=== PATIENT | female | born 1945 | race American Indian/Alaskan Native ===

== ENCOUNTER 2019-07-29 13:06 | Emergency (ER) | payer OTHER ==
--- NOTE | 2019-07-29 13:43 | Emergency Department Report ---
- General Stated complaint: TIA/HEADACHE X 3 DAYS Time Seen by Provider: 07/29/19 13:32 Source: patient, family, EMS, RN notes reviewed, old records reviewed Mode of arrival: Stretcher Limitations: No Limitations - History of Present Illness Initial comments: 73yo female comes to ER with co pain in her shoulders and knee- she states she has arthritis. Then her family members add that the pt had a stroke in Jun 2019. She was treated at [facility] and then went to rehab for 20 days. She is now living at home with and daughter. Her mobility is limited due to her chronic pain of her knee. PMH HTN HLPD DM TIA RX NORVASC STATIN pt at 1910 states she is on plavix "she forgot" PSH NONE ALLERGY ASA- hives Family adds that she had been 75% back to herself until over the last 3 days she has had intermittent slurred speech. No other neuro complaints or deficits noted per pt or family. 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/24 Complaint: generalized weakness -: Gradual, days(s) Severity: moderate Quality: aching Consistency: constant Improves with: none Worsens with: movement Associated Symptoms: denies other symptoms, other - Related Data Allergies Allergy/AdvReac Type Severity Reaction Status Date / Time aspirin Allergy Hives Verified 07/29/19 17:11 ED Review of Systems ROS: Stated complaint: TIA/HEADACHE X 3 DAYS Other details as noted in HPI Comment: All other systems reviewed and negative ED Past Medical Hx - Past Medical History Previous Medical History?: Yes Hx Hypertension: Yes Hx CVA: Yes Hx Heart Attack/AMI: No Hx Congestive Heart Failure: No Hx Diabetes: No Hx Deep Vein Thrombosis: No Hx Pulmonary Embolism: No Hx GERD: No Hx Liver Disease: No Hx Renal Disease: No Hx of Cancer: No Hx Sickle Cell Disease: No Hx Arthritis: Yes Hx Headaches / Migraines: No Hx Seizures: No Hx Kidney Stones: No Hx Psychiatric Treatment: No Hx Asthma: No Hx COPD: No Hx Tuberculosis: No Hx Dementia: Yes Hx HIV: No - Surgical History Past Surgical History?: No - Family History Family history: no significant - Social History Smoking Status: Never Smoker Substance Use Type: None ED Physical Exam - General General appearance: alert - Head Head exam: Present: atraumatic, normocephalic - Eye Eye exam: Present: normal appearance - ENT ENT exam: Present: mucous membranes dry - Neck Neck exam: Present: normal inspection - Respiratory Respiratory exam: Present: normal lung sounds bilaterally. Absent: respiratory distress - Cardiovascular Cardiovascular Exam: Present: regular rate, normal rhythm. Absent: systolic murmur, diastolic murmur, rubs, gallop - GI/Abdominal GI/Abdominal exam: Present: soft, normal bowel sounds - Extremities Exam Extremities exam: Present: normal inspection - Back Exam Back exam: Present: normal inspection - Neurological Exam Neurological exam: Present: alert - Psychiatric Psychiatric exam: Present: normal affect, flat affect - Skin Skin exam: Present: warm, dry, intact, normal color. Absent: rash - Assessment Assessment Interval: Baseline (1600 pt clear) - Level of Consciousness 1a. Level of Consciousness: alert/keenly responsive - LOC Questions 1b. LOC Questions: answers both correctly - LOC Command 1c. LOC Commands: performs tasks correctly - Best Gaze 2. Best Gaze: normal - Visual 3. Visual: no visual loss - Facial Palsy 4. Facial Palsy: normal symmetrical movement - Motor Arm 5a. Motor Arm Left: no drift 5b. Motor Arm Right: no drift - Motor Leg 6a. Motor Leg Left: no drift 6b. Motor Leg Right: no drift - Limb Ataxia 7. Limb Ataxia: absent - Sensory 8. Sensory: normal - Best Language 9. Best Language: mild/moderate aphasia - Dysarthria 10. Dysarthria: normal - Extinction and Inattention 11. Extinction/Inattention: no abnormality - Scoring Total Score: 1 Stroke Severity: Minor Stroke ED Course Vital Signs 07/29/19 07/29/19 15:02 20:40 Temperature 98.3 F 97.7 F Pulse Rate 80 80 Respiratory 17 14 Rate Blood Pressure 157/86 151/79 [Left] O2 Sat by Pulse 94 91 Oximetry - Reevaluation(s) Reevaluation #1: 07/29/19 15:[facility]: [id number] [place] paged 07/29/19 18:32 [place] called a second time. Reevaluation #3: 07/29/19 18:59 Case discussed with [place] Reevaluation #4: 07/29/19 19:10 Pt updated on plan of care. Waiting for [place] to return call. 1999 PT BEING TRANSFERRED TO [facility] PER [facility] THEY WILL ARRANGE TRANSPORT DR KINGSLEY AWARE ED Medical Decision Making - Lab Data Result diagrams: 07/29/19 14:07 07/29/19 14:07 - EKG Data -: EKG Interpreted by Me EKG shows normal: sinus rhythm Rate: normal - EKG Data When compared to previous EKG there are: no significant change Interpretation: no acute changes - Radiology Data Radiology results: report reviewed, image reviewed nap - Medical Decision Making Lab Results 07/29/19 07/29/19 07/29/19 Range/Units 14:07 14:07 14:07 RBC 5.70 H (3.65-5.03) M/mm3 Hgb 16.6 H (10.1-14.3) gm/dl Hct 51.4 H (30.3-42.9) % MCV 90 (79-97) fl MCH 29 (28-32) pg MCHC 32 (30-34) % RDW 14.6 (13.2-15.2) % Lymph % (Auto) Automated Equipment Engineer Technician [place] % (Auto) Automated Equipment Engineer Technician Eos % (Auto) Automated Equipment Engineer Technician Baso % (Auto) Automated Equipment Engineer Technician Lymph # Automated Equipment Engineer Technician [place] # Automated Equipment Engineer Technician Eos # Automated Equipment Engineer Technician Baso # Automated Equipment Engineer Technician Add Manual Diff Complete Total Counted 100 Seg Neutrophils % Automated Equipment Engineer Technician Seg Neuts % (Manual) 59.0 (40.0-70.0) % Band Neutrophils % 0 % Lymphocytes % (Manual) 28.0 (13.4-35.0) % Reactive Lymphs % (Man) 0 % Monocytes % (Manual) 8.0 H (0.0-7.3) % Eosinophils % (Manual) 4.0 (0.0-4.3) % Basophils % (Manual) 1.0 (0.0-1.8) % Metamyelocytes % 0 % Myelocytes % 0 % Promyelocytes % 0 % Blast Cells % 0 % Nucleated RBC % Not Reportable Seg Neutrophils # Automated Equipment Engineer Technician Seg Neutrophils # Man 0.0 L (1.8-7.7) K/mm3 Band Neutrophils # 0.0 K/mm3 Lymphocytes # (Manual) 0.0 L (1.2-5.4) K/mm3 Abs React Lymphs (Man) 0.0 K/mm3 Monocytes # (Manual) 0.0 (0.0-0.8) K/mm3 Eosinophils # (Manual) 0.0 (0.0-0.4) K/mm3 Basophils # (Manual) 0.0 (0.0-0.1) K/mm3 Metamyelocytes # 0.0 K/mm3 Myelocytes # 0.0 K/mm3 Promyelocytes # 0.0 K/mm3 Blast Cells # 0.0 K/mm3 WBC Morphology Not Reportable Hypersegmented Neuts Not Reportable Hyposegmented Neuts Not Reportable Hypogranular Neuts Not Reportable Smudge Cells Not Reportable Toxic Granulation Not Reportable Toxic Vacuolation Not Reportable Dohle Bodies Not Reportable Pelger-Huet Anomaly Not Reportable Marvel Rods Not Reportable Platelet Estimate Not Reportable Clumped Platelets 1+ Plt Clumps, EDTA Not Reportable Large Platelets Not Reportable Giant Platelets Not Reportable Platelet Satelliting Not Reportable Plt Morphology Comment Not Reportable RBC Morphology Not Reportable Dimorphic RBCs Not Reportable Polychromasia Not Reportable Hypochromasia 1+ Poikilocytosis Not Reportable Anisocytosis Not Reportable Microcytosis Not Reportable Macrocytosis Not Reportable Spherocytes Not Reportable Pappenheimer Bodies Not Reportable Sickle Cells Not Reportable Target Cells Not Reportable Tear Drop Cells Not Reportable Ovalocytes Not Reportable Helmet Cells Not Reportable Barba-Brenas Bodies Not Reportable Trafford Rings Not Reportable Humza Cells Not Reportable Bite Cells Not Reportable Crenated Cell Not Reportable Elliptocytes Not Reportable Acanthocytes (Spur) Not Reportable Rouleaux Not Reportable Hemoglobin C Crystals Not Reportable Schistocytes Not Reportable Malaria parasites Not Reportable Vishal Bodies Not Reportable Hem Pathologist Commnt No PT 12.8 (12.2-14.9) Sec. INR 0.95 (0.87-1.13) APTT 25.5 (24.2-36.6) Sec. Sodium 142 (137-145) mmol/L Potassium 4.4 (3.6-5.0) mmol/L Chloride 104.7 (98-107) mmol/L Carbon Dioxide 22 (22-30) mmol/L Anion Gap 20 mmol/L BUN 23 H (7-17) mg/dL Creatinine 0.8 (0.7-1.2) mg/dL Estimated GFR > 60 ml/min BUN/Creatinine Ratio 29 % Glucose 100 (65-100) mg/dL Calcium 10.2 (8.4-10.2) mg/dL Total Bilirubin 0.40 (0.1-1.2) mg/dL AST 19 (5-40) units/L ALT 15 (7-56) units/L Alkaline Phosphatase 106 (35-129) units/L Troponin T (0.00-0.029) ng/mL Total Protein 7.3 (6.3-8.2) g/dL Albumin 4.2 (3.9-5) g/dL Albumin/Globulin Ratio 1.4 % 07/29/19 Range/Units 15:56 RBC (3.65-5.03) M/mm3 Hgb (10.1-14.3) gm/dl Hct (30.3-42.9) % MCV (79-97) fl MCH (28-32) pg MCHC (30-34) % RDW (13.2-15.2) % Lymph % (Auto) [place] % (Auto) Eos % (Auto) Baso % (Auto) Lymph # [place] # Eos # Baso # Add Manual Diff Total Counted Seg Neutrophils % Seg Neuts % (Manual) (40.0-70.0) % Band Neutrophils % % Lymphocytes % (Manual) (13.4-35.0) % Reactive Lymphs % (Man) % Monocytes % (Manual) (0.0-7.3) % Eosinophils % (Manual) (0.0-4.3) % Basophils % (Manual) (0.0-1.8) % Metamyelocytes % % Myelocytes % % Promyelocytes % % Blast Cells % % Nucleated RBC % Seg Neutrophils # Seg Neutrophils # Man (1.8-7.7) K/mm3 Band Neutrophils # K/mm3 Lymphocytes # (Manual) (1.2-5.4) K/mm3 Abs React Lymphs (Man) K/mm3 Monocytes # (Manual) (0.0-0.8) K/mm3 Eosinophils # (Manual) (0.0-0.4) K/mm3 Basophils # (Manual) (0.0-0.1) K/mm3 Metamyelocytes # K/mm3 Myelocytes # K/mm3 Promyelocytes # K/mm3 Blast Cells # K/mm3 WBC Morphology Hypersegmented Neuts Hyposegmented Neuts Hypogranular Neuts Smudge Cells Toxic Granulation Toxic Vacuolation Dohle Bodies Pelger-Huet Anomaly Marvel Rods Platelet Estimate Clumped Platelets Plt Clumps, EDTA Large Platelets Giant Platelets Platelet Satelliting Plt Morphology Comment RBC Morphology Dimorphic RBCs Polychromasia Hypochromasia Poikilocytosis Anisocytosis Microcytosis Macrocytosis Spherocytes Pappenheimer Bodies Sickle Cells Target Cells Tear Drop Cells Ovalocytes Helmet Cells Barba-Brenas Bodies Trafford Rings Underwood Cells Bite Cells Crenated Cell Elliptocytes Acanthocytes (Spur) Rouleaux Hemoglobin C Crystals Schistocytes Malaria parasites Vishal Bodies Hem Pathologist Commnt PT (12.2-14.9) Sec. INR (0.87-1.13) APTT (24.2-36.6) Sec. Sodium (137-145) mmol/L Potassium (3.6-5.0) mmol/L Chloride (98-107) mmol/L Carbon Dioxide (22-30) mmol/L Anion Gap mmol/L BUN (7-17) mg/dL Creatinine (0.7-1.2) mg/dL Estimated GFR ml/min BUN/Creatinine Ratio % Glucose (65-100) mg/dL Calcium (8.4-10.2) mg/dL Total Bilirubin (0.1-1.2) mg/dL AST (5-40) units/L ALT (7-56) units/L Alkaline Phosphatase (35-129) units/L Troponin T < 0.010 (0.00-0.029) ng/mL Total Protein (6.3-8.2) g/dL Albumin (3.9-5) g/dL Albumin/Globulin Ratio % Vital Signs 07/29/19 15:02 Temperature 98.3 F Pulse Rate 80 Respiratory 17 Rate Blood Pressure 157/86 [Left] O2 Sat by Pulse 94 Oximetry EKG noted labs noted CT noted 1730 updated family [place] paged 1822 Ua noted rocephin IV still waiting for [facility] return page. 1999 [facility] [address] TRANSF[facility] DR WYNN AWARE. NAKUL LORA AWARE. - Differential Diagnosis ro tia/cva Critical care attestation.: If time is entered above; I have spent that time in minutes in the direct care of this critically ill patient, excluding procedure time. ED Disposition Clinical Impression: Slurred speech, UTI (urinary tract infection), Arthritis Disposition: DC/TX-70 ANOTHER TYPE HLTHCARE Is pt being admited?: No Does the pt Need Aspirin: No Condition: Stable Referrals: [facility] [Provider Group] - 3-5 Days Time of Disposition: 15:14
--- NOTE | 2019-07-29 14:14 | XRay Report ---
CHEST 1 VIEW INDICATION: weak. COMPARISON: None. FINDINGS: Support devices: None. Heart: Within normal limits. Pulmonary vasculature: Normal. Lungs/Pleura: No acute air space or interstitial disease. No pleural effusion. Mild eventration of th e left hemidiaphragm. The splenic flexure of the colon is mildly distended and underlies the diaphrag m. Additional findings: None. IMPRESSION: 1. No CHF or pneumonia. Signer Name: Jules Sahu MD Signed: 07/29/2019 2:10 PM Workstation Name: [id number]
[2019-07-29 14:46] LABS: Hematocrit 51.4 % (30.3-42.9); Hemoglobin 16.6 gm/dl (10.1-14.3); Mean Corpuscular HGB Conc 32 % (30-34); Mean Corpuscular Volume 90 fl (79-97); Red Cell Distribution Width 14.6 % (13.2-15.2)
[2019-07-29 14:49] LABS: INR 0.95 (0.87-1.13); Partial Thromboplastin Time 25.5 Sec. (24.2-36.6)
[2019-07-29 14:58] LABS: Alanine Aminotransferase 15 units/L (7-56); Albumin 4.2 g/dL (3.9-5); BUN/Creatinine Ratio 29; Blood Urea Nitrogen 23 mg/dL (7-17); Calcium 10.2 mg/dL (8.4-10.2); Hemolysis Index 12
[2019-07-29] MEDS ORDERED: KETOROLAC 30 MG/1 ML INJ IV ONE (15:09)
--- NOTE | 2019-07-29 15:28 | Cat Scan Report ---
CT HEAD WITHOUT CONTRAST INDICATION : slurred speech for 3 days. TECHNIQUE: Axial imaging performed from the skull apex through the skull base without the use of con trast. Sagittal and coronal reformatted images. All CT scans at this location are performed using C T dose reduction for ALARA by means of automated exposure control. COMPARISON: None FINDINGS: Parenchyma: No acute intracranial hemorrhage or parenchymal abnormality. Mild hypoattenuation throug hout the white matter is consistent with chronic microangiopathy. Ventricles: Ventricles are normal in size and appear symmetric. Bones: No acute osseous abnormality. Sinuses: Sinuses and mastoid air cells are clear. Soft tissues: Soft tissues including the orbits appear normal. IMPRESSION: No acute abnormality. Nonspecific chronic white matter changes. Signer Name: Reed Franco Jr, MD Signed: 07/29/2019 3:24 PM Workstation Name: [id number]
[2019-07-29 15:47] LABS: Hypochromasia 1+; Platelet Clumps 1+; Total Cells Counted 100
[2019-07-29 16:37] LABS: Platelet Count 204 K/mm3 (140-440)
[2019-07-29 17:42] LABS: Bacteria,Urine 1+ /HPF (Negative); Bilirubin,Urine NEG (Negative); Blood,Urine NEG (Negative); Color,Urine Yellow (Yellow); Mucus,Urine FEW /HPF; Protein,Urine <15 mg/dL mg/dL (Negative); Urobilinogen,Urine < 2.0 mg/dL (<2.0)
[2019-07-29] MEDS ORDERED: cefTRIAXone/NS 1 GM/50 ML 1 GM/50 ML BAG IV ONE (18:21)
[2019-07-29 20:41] VITALS: BP 151/79
== END 2019-07-29 20:55 | disposition other institution (70) ==
LOC: ED 13:06
DX: N39.0 Urinary tract infection, site not specified (principal); R47.81 Slurred speech; M25.511 Pain in right shoulder; M25.512 Pain in left shoulder; M25.562 Pain in left knee; M25.561 Pain in right knee; I10 Essential (primary) hypertension; F03.90 Unspecified dementia, unspecified severity, without behavioral disturbance, psychotic disturbance, mood disturbance, and anxiety; Z86.73 Personal history of transient ischemic attack (TIA), and cerebral infarction without residual deficits; Z88.6 Allergy status to analgesic agent
CPT/HCPCS: 36415; 70450; 71045; 80053; 81001; 84484; 85007; 85025; 85610; 85730; 87086; 93005; 93010; 96374; 99285; J1885

== ENCOUNTER 2020-06-02 00:40 | Inpatient (IN) | payer MEDICARE, OTHER ==
[2020-06-02] MEDS ORDERED: CLOPIDOGREL 300 MG TAB PO ONE (01:13)
--- NOTE | 2020-06-02 01:14 | Emergency Department Report ---
ED Neuro Deficit HPI - General Stated Complaint: CVA Time Seen by Provider: 06/02/20 00:47 - History of Present Illness Initial Comments: [facility] Date of Service: 06/02/2020 00:42:01 Impression: I63.9 - Cerebrovascular accident (CVA), unspecified mechanism (HCC) Comments/Sign-Out: Patient with 2 weeks of right sided weakness and dysarthria that started at 19:00 without a facial droop. She is on Pradaxa for PE so multiple reasons she is not a tpa candidate. No coritcal signs. Recommend admission for further stroke work up. Metrics: Last Known Well: 06/01/2020 19:00:00 [employer] Notification Time: 06/02/2020 00:41:31 Arrival Time: 06/02/2020 00:40:00 Stamp Time: 06/02/2020 00:42:01 Time First Login Attempt: 06/02/2020 00:43:46 Video Start Time: 06/02/2020 00:43:46 Symptoms: slurred speech NIHSS Start Assessment Time: 06/02/2020 01:00:01 Patient is not a candidate for Alteplase/Activase. Patient was not deemed candidate for Alteplase/Activase thrombolytics because of Last Well Known Above 4.5 Hours. Video End Time: 06/02/2020 01:05:10 CT head showed no acute hemorrhage or acute core infarct. Clinical Presentation is not Suggestive of Large Vessel Occlusive Disease ED Physician notified of diagnostic impression and management plan on 06/02/2020 01:06:00 Our recommendations are outlined below. Recommendations: Activate Stroke Protocol Admission/Order Set Stroke/Telemetry Floor Neuro Checks Bedside Swallow Eval DVT Prophylaxis IV Fluids, Normal Saline Head of Bed 30 Degrees Euglycemia and Avoid Hyperthermia (PRN Acetaminophen) Initiate Plavix 75 MG Daily Routine Consultation with Inhouse Neurology for Follow up Care Sign Out: Discussed with Emergency Department Provider History of Present Illness: Patient is a 74 year old Female. Patient was brought by EMS for symptoms of slurred speech 74 yo F with history of PE, stroke, htn and hl who is presenting with slurred speech. She was at a doctor or right ankle swelling and abdominal pain and she developed slurred speech. She had slurred speech at 22:00. Unclear last normal time. Her speech changed around 19:00. Patient had had right leg weakness for 2 weeks. Past Medical History: Hypertension Diabetes Mellitus Hyperlipidemia Stroke Anticoagulant use: Pradaxa Antiplatelet use: No Examination: 1A: Level of Consciousness - Alert; keenly responsive + 0 1B: Ask Month and Age - Both Questions Right + 0 1C: Blink Eyes & Squeeze Hands - Performs Both Tasks + 0 2: Test Horizontal Extraocular Movements - Normal + 0 3: Test Visual Li - No Visual Loss + 0 4: Test Facial Palsy (Use Grimace if Obtunded) - Normal symmetry + 0 5A: Test Left Arm Motor Drift - No Drift for 10 Seconds + 0 5B: Test Right Arm Motor Drift - No Drift for 10 Seconds + 0 6A: Test Left Leg Motor Drift - No Drift for 5 Seconds + 0 6B: Test Right Leg Motor Drift - No Effort Against Moody + 3 7: Test Limb Ataxia (FNF/Heel-Chow) - No Ataxia + 0 8: Test Sensation - Normal; No sensory loss + 0 9: Test Language/Aphasia - Normal; No aphasia + 0 10: Test Dysarthria - Mild-Moderate Dysarthria: Slurring but can be understood + 1 11: Test Extinction/Inattention - No abnormality + 0 NIHSS Score: 4 Patient/Family was informed the Neurology Consult would happen via TeleHealth consult by way of interactive audio and video telecommunications and consented to receiving care in this manner. Due to the immediate potential for life-threatening deterioration due to underlying acute neurologic illness, I spent 35 minutes providing critical care. This time includes time for face to face visit via telemedicine, review of medical records, imaging studies and discussion of findings with providers, the patient and/or family. Dr Rocio Sal [facility] Case [id number] - Related Data Allergies/Adverse Reactions: Allergies Allergy/AdvReac Type Severity Reaction Status Date / Time aspirin Allergy Hives Verified 07/29/19 17:11 ED Review of Systems ROS: Stated complaint: CVA Other details as noted in HPI ED Past Medical Hx - Past Medical History Hx Hypertension: Yes Hx CVA: Yes Hx Heart Attack/AMI: No Hx Congestive Heart Failure: No Hx Diabetes: No Hx Deep Vein Thrombosis: No Hx Pulmonary Embolism: No Hx GERD: No Hx Liver Disease: No Hx Renal Disease: No Hx Sickle Cell Disease: No Hx Arthritis: Yes Hx Headaches / Migraines: No Hx Seizures: No Hx Kidney Stones: No Hx Psychiatric Treatment: No Hx Asthma: No Hx COPD: No Hx Tuberculosis: No Hx Dementia: Yes Hx HIV: No - Social History Smoking Status: Never Smoker Substance Use Type: None ED Neuro Physical Exam - General Suspected Stroke: Yes - NIHSS Assessment Interval: Baseline 1a. Level of Consciousness: alert/keenly responsive 1b. LOC Questions: answers both correctly 1c. LOC Commands: performs tasks correctly 2. Best Gaze: normal 3. Visual: no visual loss 4. Facial Palsy: normal symmetrical movement 5b. Motor Arm Right: no drift 5a. Motor Arm Left: no drift 6a. Motor Leg Left: no drift 6b. Motor Leg Right: no gravity effort 7. Limb Ataxia: absent 8. Sensory: normal 9. Best Language: no aphasia 10. Dysarthria: mild/moderate dysarthria 11. Extinction/Inattention: no abnormality Total Score: 4 Stroke Severity: Minor Stroke Critical care attestation.: If time is entered above; I have spent that time in minutes in the direct care of this critically ill patient, excluding procedure time. ED Disposition Clinical Impression: Stroke Disposition: OP ADMIT IP TO THIS HOSP Is pt being admited?: Yes Condition: Stable Referrals: PRIMARY CARE, [Primary Care Provider] - 3-5 Days
--- NOTE | 2020-06-02 01:22 | Emergency Department Report ---
HPI - General Time Seen by Provider: 06/02/20 00:47 - HPI HPI: Room 22 The patient is a 74-year-old female presenting with a chief complaint right lower extremity weakness pain and garbled speech. The patient originally went to a [facility] facility for evaluation after she had noticed garbled speech and right lower extremity weakness. Patient was subsequently sent to this ED. Transferring facility initially stated that the patient's onset of symptoms began at approximate 22: 15. However, in this ED the patient states that her speech pattern changed today at 19: 00. Patient states she has had right lower extremity swelling for several weeks ED Past Medical Hx - Past Medical History Hx Hypertension: Yes Hx CVA: Yes (X2, last May 2019)) Hx Arthritis: Yes Hx Dementia: Yes - Surgical History Hx Appendectomy: Yes - Family History Family history: no significant - Social History Smoking Status: Never Smoker Substance Use Type: None ED Review of Systems ROS: Stated complaint: CVA Other details as noted in HPI Constitutional: no symptoms reported Eyes: denies: eye pain ENT: denies: throat pain Respiratory: no symptoms reported Cardiovascular: denies: chest pain Endocrine: no symptoms reported Gastrointestinal: denies: abdominal pain Genitourinary: denies: dysuria Musculoskeletal: denies: back pain Neurological: other (Speech change). denies: headache Physical Exam - Physical Exam Physical Exam: GENERAL: The patient is well-developed well-nourished female lying on stretcher not appearing to be in acute distress. [] HEENT: Normocephalic. Atraumatic. Extraocular motions are intact. Patient has moist mucous membranes. NECK: Supple. Trachea midline CHEST/LUNGS: Clear to auscultation. There is no respiratory distress noted. HEART/CARDIOVASCULAR: Regular. There is no tachycardia. There is no gallop rub or murmur. ABDOMEN: Abdomen is soft, nontender. Patient has normal bowel sounds. There is no abdominal distention. SKIN: There is erythema to the dorsum of the distal right foot but there is no increased warmth. There is no diaphoresis. NEURO: The patient is awake, alert, and oriented. The patient is cooperative. Cranial nerves II through XII grossly intact. Patient unable to raise right lower extremity off of stretcher. Patient able to raise left lower extremity. GCS 15. The patient has dysarthria MUSCULOSKELETAL: There is no evidence of acute injury. ED Course - Consultations Consultation #1: 06/02/20 03:03 Hospitalist made aware of positive DVT on Doppler and patient's previous administration of Plavix. Requesting Lovenox be given in ED ED Medical Decision Making - Lab Data Result diagrams: 06/02/20 01:17 06/02/20 01:17 Laboratory Tests 06/02/20 06/02/20 06/02/20 01:17 01:17 01:17 WBC 6.7 RBC 5.11 H Hgb 15.4 H Hct 46.8 H MCV 92 MCH 30 MCHC 33 RDW 15.5 H Plt Count 255 Lymph % (Auto) 23.2 [place] % (Auto) 9.5 H Eos % (Auto) 1.8 Baso % (Auto) 0.8 Lymph # (Auto) 1.6 [place] # (Auto) 0.6 Eos # (Auto) 0.1 Baso # (Auto) 0.1 Seg Neutrophils % 64.7 Seg Neutrophils # 4.4 PT 15.4 H INR 1.22 H APTT 49.7 H Thrombin Time < 13.0 L Sodium 141 Potassium 3.5 L Chloride 106.3 Carbon Dioxide 24 Anion Gap 14 BUN 16 Creatinine 0.8 Estimated GFR > 60 BUN/Creatinine Ratio 20 Glucose 102 H Calcium 9.6 - Radiology Data Radiology results: report reviewed (CT head, right lower extremity Doppler (verbal report)), image reviewed (CT head) Findings [facility] [address] [place] [address] Cat Scan Report Signed Patient: DAYNA BARILLAS MR#: [id number] 40 : 1945 Acct:[id number] Age/Sex: 74 / F ADM Date: 06/02/20 Loc: ED Attending Dr: Ordering Physician: SANDEE ODELL MD Date of Service: 06/02/20 Procedure(s): CT head/brain wo con Accession Number(s): [id number] cc: SANDEE ODELL MD CT head/brain wo con INDICATION: CODE STROKE PROTOCOL, Right leg weakness, slurred speech. TECHNIQUE: Routine CT head without contrast. All CT scans at this location are performed using CT dose reduction for ALARA by means of automated exposure control. COMPARISON: CT head 07/29/2019 FINDINGS: BRAIN / INTRACRANIAL CONTENTS: No acute hemorrhage, mass effect, midline shift, or hydrocephalus. No appreciable acute large territorial or lacunar infarct. Age-commensurate ventricular and cisternal/sulcal prominence. Patchy areas of cerebral white matter hypodensity most notably in the deep cerebral white matter of the parietal lobes is not significantly changed from prior examination and likely secondary to chronic microvascular ischemic change. Castillo-white differentiation is preserved. There is an unchanged chronic lacunar infarct seen in the left head of the caudate. ORBITS: No significant abnormality of visualized orbits. SINUSES / MASTOIDS: No significant abnormality of visualized sinuses and mastoid air cells. ADDITIONAL FINDINGS: None. IMPRESSION: 1. No acute intracranial abnormality on noncontrast CT of the brain. 2. Chronic white matter changes and a chronic lacunar infarct in the left head of the caudate are not significantly changed from prior examination. The above findings were discussed with Dr. Odell in the emergency department at 12:12 AM central time on 06/02/2020. Signer Name: Raven Jack MD Signed: 06/02/2020 1:15 AM Workstation Name: [id number] Transcribed By: C Dictated By: Raven Jack MD Electronically Authenticated By: Raven Jack MD Signed Date/Time: 06/02/20114 DD/ 3 TD /TT: Right lower extremity Doppler (verbal report from radiologist)-positive acute DVT in the common femoral vein - Differential Diagnosis CVA, DVT, UTI Critical care attestation.: If time is entered above; I have spent that time in minutes in the direct care of this critically ill patient, excluding procedure time. ED Disposition Clinical Impression: Stroke, Deep vein thrombosis (DVT) of right lower extremity Disposition: OP ADMIT IP TO THIS HOSP Is pt being admited?: Yes Does the pt Need Aspirin: No Condition: Fair Referrals: PRIMARY CARE, [Primary Care Provider] - 3-5 Days Time of Disposition: 03:03 (Hospitalist notified (Dr Mon))
[2020-06-02 01:59] LABS: Basophils # (Auto) 0.1 K/mm3 (0.0-0.1); Basophils % (Auto) 0.8 % (0.0-1.8); Eosinophils # (Auto) 0.1 K/mm3 (0.0-0.4); Eosinophils % (Auto) 1.8 % (0.0-4.3); Hematocrit 46.8 % (30.3-42.9); Hemoglobin 15.4 gm/dl (10.1-14.3); Lymphocytes # (Auto) 1.6 K/mm3 (1.2-5.4); Lymphocytes % (Auto) 23.2 % (13.4-35.0); Mean Corpuscular HGB Conc 33 % (30-34); Mean Corpuscular Volume 92 fl (79-97); Monocytes # (Auto) 0.6 K/mm3 (0.0-0.8); Monocytes % (Auto) 9.5 % (0.0-7.3); Platelet Count 255 K/mm3 (140-440); Red Blood Count 5.11 M/mm3 (3.65-5.03); Red Cell Distribution Width 15.5 % (13.2-15.2)
[2020-06-02 02:10] LABS: BUN/Creatinine Ratio 20; Blood Urea Nitrogen 16 mg/dL (7-17); Calcium 9.6 mg/dL (8.4-10.2); Hemolysis Index 7
[2020-06-02 02:22] LABS: INR 1.22 (0.87-1.13)
[2020-06-02 02:23] LABS: Partial Thromboplastin Time 49.7 Sec. (24.2-36.6)
[2020-06-02 02:40] LABS: Thrombin Time < 13.0 Sec. (15.1-19.6)
[2020-06-02] MEDS ORDERED: ONDANSETRON 4 MG/2 ML INJ IV PRN ×2 (02:45)
[2020-06-02] MEDS ORDERED: ACETAMINOPHEN 325 MG TAB PO PRN ×2 (02:45)
[2020-06-02] MEDS ORDERED: METOCLOPRAMIDE 10 MG TAB PO PRN (02:45)
[2020-06-02] MEDS ORDERED: PROMETHAZINE 25 MG RECT SUPP PR PRN (02:45)
[2020-06-02] MEDS ORDERED: MAGNESIUM HYDROXIDE (MOM) ORAL LIQD UDC PO PRN ×2 (02:45)
[2020-06-02] MEDS ORDERED: DEXTROSE 50% IN WATER (25GM) 50 ML SYRINGE IV PRN (02:45)
[2020-06-02] MEDS ORDERED: ENOXAPARIN 100 MG/1 ML INJ SUB-Q ONE (03:02)
--- NOTE | 2020-06-02 03:06 | History and Physical Report ---
History of Present Illness Date of examination: 06/02/20 Date of admission: 06/02/2020 Chief complaint: Slurred Speech Right leg Swelling History of present illness: 74-year-old female with known history of hypertension, CVA in 2019 presenting to the emergency room today complaining of slow speech and weakness on the right lower extremity. She had initially gone to a [place] facility for evaluation and subsequently sent here for further management. Patient had noticed the changes at about 19: 00 today. She denies any headache or dizziness, denies any blurry vision, no fever or chills, no chest pain or shortness of breath, no nausea or vomiting, no abdominal pain, no hematuria or dysuria. Patient has however noticed right lower extremity swelling for few weeks and she has also been having some pain in the right lower extremity. She denies any fall or trauma to the lower extremities. Work-up in the emergency room today CT scan of the head was unremarkable. Patient was evaluated by the tele-neurologist and deemed not to be a TPA candidate. Ultrasound of the right lower extremity reveals DVT in the common femoral vein. Patient has been admitted for work-up of CVA and management of DVT. Past History Past Medical History: arthritis, hypertension, stroke (2019), other (Dementia,) Past Surgical History: appendectomy Social history: no significant social history Family history: no significant family history Medications and Allergies Allergies Allergy/AdvReac Type Severity Reaction Status Date / Time aspirin Allergy Hives Verified 07/29/19 17:11 Active Meds: Active Medications Acetaminophen (Tylenol) 650 mg PO Q4H PRN PRN Reason: Pain MILD(1-3)/Fever >100.5/SHAW Aspirin (Aspirin) 325 mg PO QDAY KJ Atorvastatin Calcium (Lipitor) 40 mg PO QHS KJ Bisacodyl (Dulcolax) 10 mg NM QDAY PRN PRN Reason: Constipation Dextrose (D50w (25gm) Syringe) 50 ml IV Q30MIN PRN; Protocol PRN Reason: Hypoglycemia Heparin Sodium (Porcine) (Heparin) 5,000 unit SUB-Q Q8HR KJ Piperacillin Sod/Tazobactam Sod (Zosyn/Ns 3.375gm/50ml) 3.375 gm in 50 mls @ 100 mls/hr IV Q8HR KJ; Protocol Magnesium Hydroxide (Milk Of Magnesia) 30 ml PO Q4H PRN PRN Reason: Constipation Metoclopramide HCl (Reglan) 10 mg PO Q6H PRN PRN Reason: Nausea And Vomiting Morphine Sulfate (Morphine) 2 mg IV Q4H PRN PRN Reason: Pain, Moderate (4-6) Ondansetron HCl (Zofran) 4 mg IV Q8H PRN PRN Reason: Nausea And Vomiting Ondansetron HCl (Zofran) 4 mg IV Q8H PRN PRN Reason: Nausea And Vomiting Promethazine HCl (Phenergan) 25 mg NM Q6H PRN PRN Reason: Nausea And Vomiting Sodium Chloride (Sodium Chloride Flush Syringe 10 Ml) 10 ml IV BID KJ Sodium Chloride (Sodium Chloride Flush Syringe 10 Ml) 10 ml IV PRN PRN PRN Reason: LINE FLUSH Sodium Chloride (Sodium Chloride Flush Syringe 10 Ml) 10 ml INJ PRN PRN PRN Reason: LINE FLUSH Review of Systems Constitutional: no fever, no chills Ears, nose, mouth and throat: no nasal congestion, no sore throat Cardiovascular: no chest pain, no palpitations Respiratory: no cough, no shortness of breath Gastrointestinal: no abdominal pain, no nausea, no vomiting, no diarrhea Genitourinary Female: no pelvic pain, no flank pain, no hematuria Musculoskeletal: no neck pain, no low back pain Integumentary: no rash, no pruritis Neurological: change in speech, no headaches, no confusion Psychiatric: no anxiety, no depression Exam - Constitutional General appearance: Present: no acute distress, well-nourished - EENT Eyes: Present: PERRL, EOM intact. Absent: scleral icterus ENT: hearing intact, clear oral mucosa, dentition normal - Neck Neck: Present: supple, normal ROM - Respiratory Respiratory effort: normal Respiratory: bilateral: CTA - Cardiovascular Rhythm: regular Heart Sounds: Present: S1 & S2. Absent: gallop, systolic murmur, diastolic murmur, rub - Extremities Extremities: no ischemia, pulses intact, pulses symmetrical, Full ROM Extremity abnormal: edema (2+ right lower extremity edema), tenderness (Right lower extremity tenderness, slightly swollen calf.), other (Redness and ten derness over dorsum of right foot.) Peripheral Pulses: within normal limits - Abdominal General gastrointestinal: Present: soft, non-tender, non-distended, normal bowel sounds. Absent: mass - Integumentary Integumentary: Present: clear, warm, dry - Musculoskeletal Musculoskeletal: strength equal bilaterally - Psychiatric Psychiatric: appropriate mood/affect, intact judgment & insight, memory intact, cooperative - Neurologic Neurologic: CNII-XII intact, no focal deficits, moves all extremities, other (Slurred speech.) Results - Labs CBC & Chem 7: 06/02/20 01:17 06/02/20 01:17 Labs: Abnormal lab results 06/02/20 06/02/20 06/02/20 Range/Units 01:17 01:17 01:17 RBC 5.11 H (3.65-5.03) M/mm3 Hgb 15.4 H (10.1-14.3) gm/dl Hct 46.8 H (30.3-42.9) % RDW 15.5 H (13.2-15.2) % [place] % (Auto) 9.5 H (0.0-7.3) % PT 15.4 H (12.2-14.9) Sec. INR 1.22 H (0.87-1.13) APTT 49.7 H (24.2-36.6) Sec. Thrombin Time < 13.0 L (15.1-19.6) Sec. Potassium 3.5 L (3.6-5.0) mmol/L Glucose 102 H (65-100) mg/dL Assessment and Plan - Patient Problems (1) CVA (cerebral vascular accident) Current Visit: Yes Status: Acute Plan to address problem: We will schedule patient for MRI of the brain and carotid Doppler. Patient started on Plavix and statin. We will request evaluation by neurology. (2) Cellulitis of foot, right Current Visit: Yes Status: Acute Plan to address problem: We will start patient on empiric IV antibiotics. (3) Right leg DVT Current Visit: Yes Status: Acute Plan to address problem: Patient started on anticoagulation with Lovenox. (4) Full code status Current Visit: Yes Status: Acute
--- NOTE | 2020-06-02 03:06 | Vascular Lab Report ---
DUPLEX DOPPLER LOWER EXTREMITY VEINS, RIGHT INDICATION / CLINICAL INFORMATION: Right lower extremity swelling. TECHNIQUE: Duplex doppler imaging was performed through the veins of the right lower extremity using venous comp ression and other maneuvers. COMPARISON: None available. FINDINGS: RIGHT COMMON FEMORAL VEIN: Acute thrombus. RIGHT FEMORAL VEIN: There is suggestion of nonocclusive thrombus in the proximal to midportion. RIGHT POPLITEAL VEIN: Negative. RIGHT CALF VEINS: Negative. ADDITIONAL FINDINGS: None. IMPRESSION: 1. The examination is positive for DVT noted in the common femoral vein through the midportion of the femoral vein. The above finding was discussed with Dr. Mejia at 2:00 AM central time on 06/02/2020. Signer Name: Raven Jack MD Signed: 06/02/2020 3:01 AM Workstation Name: [email or web address]
[2020-06-02] MEDS: ENOXAPARIN 120 MG/0.8 ML INJ SUB-Q SCH ×2 (05:35→17:52)
[2020-06-02] MEDS ORDERED: HEPARIN 5,000 UNIT/1 ML VIAL SUB-Q SCH (06:00)
[2020-06-02] MEDS ORDERED: PIPERACILLIN/TAZOBACTAM 3.375 3.375 GM/50 ML BAG IV SCH (06:00)
[2020-06-02] MEDS: PIPERACIL/TAZOBACTA 4.5/NS 100 4.5 GM/100 ML VIAL IV SCH ×3 (08:50→22:04)
--- NOTE | 2020-06-02 09:21 | Consultation ---
History of Present Illness Consult date: 06/02/20 Reason for Consult: CVA Chief complaint: Right leg weakness and slurred speech History of present illness: 74 yo female with htn, hld, stroke, PE (on Xarelto initially; currently on Pradaxa)), cva (may 2019; residual intermittent right-sided weakness w/ changes in voice/speech intermittently), who presents with 2 weeks of right leg weakness w/ right leg swelling and recurrence of dysarthria. She also notes right ankle swelling and abdominal pain. Notes same symptoms with her stroke in may 2019 with dysarthria and right-sided weakness. Past History Past Medical History: arthritis, hypertension, stroke (2019), other (Dementia,) Past Surgical History: appendectomy Social history: no significant social history Family history: no significant family history Medications and Allergies Allergies Allergy/AdvReac Type Severity Reaction Status Date / Time aspirin Allergy Hives Verified 07/29/19 17:11 Active Meds: Active Medications Acetaminophen (Tylenol) 650 mg PO Q4H PRN PRN Reason: Pain MILD(1-3)/Fever >100.5/SHAW Atorvastatin Calcium (Lipitor) 40 mg PO QHS KJ Bisacodyl (Dulcolax) 10 mg DE QDAY PRN PRN Reason: Constipation Dextrose (D50w (25gm) Syringe) 50 ml IV Q30MIN PRN; Protocol PRN Reason: Hypoglycemia Enoxaparin Sodium (Enoxaparin) 120 mg 1 mg/kg (120 mg) SUB-Q Q12H KJ; Protocol Last Admin: 06/02/20 05:35 Dose: 120 mg Documented by: Piperacillin Sod/Tazobactam Sod (Zosyn/Ns 4.5gm/100ml) 4.5 gm in 100 mls @ 200 mls/hr IV Q8HR KJ; Protocol Last Admin: 06/02/20 08:50 Dose: 200 mls/hr Documented by: Magnesium Hydroxide (Milk Of Magnesia) 30 ml PO Q4H PRN PRN Reason: Constipation Metoclopramide HCl (Reglan) 10 mg PO Q6H PRN PRN Reason: Nausea And Vomiting Morphine Sulfate (Morphine) 2 mg IV Q4H PRN PRN Reason: Pain, Moderate (4-6) Ondansetron HCl (Zofran) 4 mg IV Q8H PRN PRN Reason: Nausea And Vomiting Promethazine HCl (Phenergan) 25 mg DE Q6H PRN PRN Reason: Nausea And Vomiting Sodium Chloride (Sodium Chloride Flush Syringe 10 Ml) 10 ml IV BID KJ Sodium Chloride (Sodium Chloride Flush Syringe 10 Ml) 10 ml IV PRN PRN PRN Reason: LINE FLUSH Review of Systems All systems: negative (except as per HPI;) Physical Examination - Vital Signs Vital Signs: Vital Signs Temp Pulse Resp BP 98.2 F 108 H 16 182/99 06/02/20 01:15 06/02/20 01:15 06/02/20 01:15 06/02/20 01:15 - Additional Exam Additional Exam: Gen: nad, well-nourished; Head: normocephalic; Eyes: no gaze deviation; no ptosis; ENT: normal vocalization; CVS: warm and well-perfused; Pulm: no respiratory distress; GI: non-distended, protuberant; Ext: +erythema & + edema at RLE; Skin: no acute rash or hives at distal extremities; Heme: no pathologic bruising at distal extremities; Neuro: alert, oriented to name, age, month, year, surroundings, + mild to moderate dysarthria, no aphasia, 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; left eye visual kyle intact, CN 3, 4, 6 - EOMI, CN 5 - facial sensation symmetric to light touch, CN 7 - facial movement decreased on the right, CN 8 - hearing grossly intact, CN 9, 10 - uvula midline, CN 11 - shrug symmetric, CN 12 - tongue midline; Motor - at least 4/5 in all exts; Sensory - light touch decreased at RUE; +dysesthesia at RLE; Cerebellar - fnf intact and not able to perform hts bc of pain/weakness, Gait - deferred secondary to fall risk; NIHSS (1a.) Level of Consciousness:0 (1b.) LOC Questions:0 (1c.) LOC Commands:0 (2.) Best Gaze:0 (3.) Visual:2 (4.) Facial Palsy:0 (5a.) Motor Arm, Left:0 (5b.) Motor Arm, Right:0 (6a.) Motor Leg, Left:0 (6b.) Motor Leg, Right:3 (7.) Limb Ataxia:0 (8.) Sensory:1 (9.) Best Language:0 (10.) Dysarthria:2 (11.) Extinction and Inattention: NIHSS Total Score: 8 Results - Laboratory Findings CBC and BMP: 06/02/20 01:17 06/02/20 01:17 Abnormal Lab Findings: Abnormal Labs 06/02/20 06/02/20 06/02/20 01:17 01:17 01:17 RBC 5.11 H Hgb 15.4 H Hct 46.8 H RDW 15.5 H [place] % (Auto) 9.5 H PT 15.4 H INR 1.22 H APTT 49.7 H Thrombin Time < 13.0 L Potassium 3.5 L Glucose 102 H Assessment and Plan 74 yo female with htn, hld, stroke, PE (on Xarelto initially and now on Pradaxa), who presents with 2 weeks of right leg weakness and new onset of dysa rthria. She also notes right ankle swelling and abdominal pain. PLAN 1. Acute/Subacute or Recrudescence of Ischemic Stroke: ASA 325 mg PO qday, MRI Brain w/o contrast, CTA Head/Neck w/ & w/o contrast, TTEcho, CUS, check LDL/HgbA1C/TSH, baseline CXR, EKG; telemetry, SBP goal 160-200 mmHg and DBP 80- 100 mmHg for now. Statin therapy for a goal LDL of 70, when patient passes swallow evaluation. PT/OT/ST/Swallow evaluation. Long-term risk-factor modification, including a strict diet/exercise regimen for secondary stroke prophylaxis. 2. Hypertension - goal SBP 160-200 mmHg and DBP 80-100 mmHg. 3. Hyperlipidemia - goal LDL of 70 w/ statin therapy if no contraindications. 4. Dysarthria / Dysphagia - st / swallow evaluation/monitoring. 5. Right Leg weakness - pt/ot evaluation/monitoring. 6. Abdominal Pain - ?bowel ischemia; per primary team. 7. Ankle Swelling - secondary to DVT?; monitor for compartment syndrome. 8. Hypercoaguable state - per hematology/primary team; ?secondary (malignancy) hypercoag state). Danial Landrum MD Neurology
[2020-06-02] MEDS ORDERED: ENOXAPARIN 100 MG/1 ML INJ SUB-Q SCH (10:00)
[2020-06-02] MEDS ORDERED: ASPIRIN 325 MG TAB PO SCH (10:00)
--- NOTE | 2020-06-02 13:44 | Vascular Lab Report ---
Bilateral Carotid Doppler Ultrasound INDICATION : stroke TECHNIQUE: Grayscale and color Doppler imaging performed through the neck. COMPARISON: None FINDINGS: Right: There is mild atherosclerotic disease in the carotid bulb. Peak systolic velocity in the CCA is 59 cm/s. Peak systolic velocity in the proximal ICA is 82 cm/s with end-diastolic velocity of 26 cm/s. ICA to CCA ratio is less than 2. There is antegrade flow in the ECA and the vertebral artery. Left: There is mild atherosclerotic disease in the carotid bulb and proximal ICA. Peak systolic veloc ity in the CCA is 61 cm/s. Peak systolic velocity in the proximal ICA is 65 cm/s with end-diastolic v elocity of 17 cm/s. ICA to CCA ratio is less than 2. There is antegrade flow in the ECA and the vert ebral artery. IMPRESSION: No hemodynamically significant stenosis by NASCET criteria. Signer Name: Mello Roper MD Signed: 06/02/2020 1:39 PM Workstation Name: [id number]
--- NOTE | 2020-06-02 13:52 | Event Note ---
Date: 06/02/20 Patient seen and examined 74-year-old female with known history of hypertension, CVA in 2019 presenting to the emergency room complaining of slow speech and weakness on the right lower extremity. She had initially gone to a [place] facility for evaluation and subsequently sent here for further management. Work-up in the emergency room today CT scan of the head was unremarkable. Patient was evaluated by the tele-neurologist and deemed not to be a TPA candidate. Ultrasound of the right lower extremity reveals DVT in the common femoral vein. Patient has been admitted for work-up of CVA and management of DVT. We will follow up MRI brain result, neurology consulted. Need neurology recommendation for DVT management Continue to provide supportive care
--- NOTE | 2020-06-02 14:23 | XRay Report ---
ABDOMEN ONE VIEW INDICATION / CLINICAL INFORMATION: MAIN. COMPARISON: None available. FINDINGS: Nonspecific bowel gas pattern. No definite evidence of obstruction Signer Name: Kenneth Ferrer MD FACR Signed: 06/02/2020 2:18 PM Workstation Name: [id number]
--- NOTE | 2020-06-02 14:51 | Magnetic Resonance Report ---
MR brain wo con INDICATION / CLINICAL INFORMATION: 74 years Female; MAIN. TECHNIQUE: Multiplanar, multisequence MR images of the brain were obtained. COMPARISON: None available. FINDINGS: BRAIN / INTRACRANIAL CONTENTS: There is moderate cerebral white matter disease most notably involving the periventricular regions and most consistent with microvascular angiopathy. There are old infarct s involving inferior rachelle. However, there is a 3 mm focus of subtle increased diffusion signal within the left rachelle. There is associated decreased signal within this region on the ADC map and correlatio n would be needed regarding small acute/subacute infarct. There is no evidence of acute supratentoria l infarct. There are extensive prominent perivascular spaces along the basal ganglia and thalami. There is mild to moderate cerebral and cerebellar atrophy. The ventricular system is correspondingly appropriate in size and configuration. The findings correlate with the earlier CT demonstrating dense calcification along the anterior falx. No extra-axial fluid collections are identified. CRANIOCERVICAL JUNCTION: No significant abnormality. VASCULAR FLOW-VOIDS: No significant abnormality. ORBITS: There is incidental note of scleral banding involving the right optic lobe. SINUSES / MASTOIDS: No significant abnormality in the visualized paranasal sinuses or mastoid air silver ls. ADDITIONAL FINDINGS: None. IMPRESSION: 1. There is a subtle 3 mm focus of increased diffusion signal within the left rachelle as detailed above and correlation would be needed regarding small acute/subacute infarct. 2. There is otherwise moderate microvascular angiopathy and mild to moderate cerebral atrophy. Signer Name: Kian Tamayo MD Signed: 06/02/2020 2:47 PM Workstation Name: [id number]
[2020-06-02] MEDS: MORPHINE 2 MG/1 ML INJ IV PRN (16:01)
[2020-06-02] MEDS: oxyCODONE /ACETAMINOPHEN 5-325MG TAB PO PRN (18:57)
[2020-06-03] MEDS: oxyCODONE /ACETAMINOPHEN 5-325MG TAB PO PRN ×2 (04:28→09:32)
[2020-06-03] MEDS: PIPERACIL/TAZOBACTA 4.5/NS 100 4.5 GM/100 ML VIAL IV SCH ×3 (06:00→21:28)
[2020-06-03] MEDS: ENOXAPARIN 120 MG/0.8 ML INJ SUB-Q SCH (06:00)
[2020-06-03 06:27] LABS: Chol/HDL Ratio 2.03 %
--- NOTE | 2020-06-03 14:31 | Progress Note ---
Assessment and Plan (1) CVA (cerebral vascular accident) Current Visit: Yes Status: Acute Plan to address problem: s/p MRI of the brain and carotid Doppler. Patient started on plavix as she is allergic to aspirin and continue statin. requested evaluation by neurology. PT recommended home health (2) Cellulitis of foot, right Current Visit: Yes Status: Acute Plan to address problem: We will start patient on empiric IV antibiotics. (3) Right leg DVT Current Visit: Yes Status: Acute Plan to address problem: Patient started on anticoagulation with Lovenox. (4) Full code status Current Visit: Yes Status: Acute 06/03: MRI brain positive for 3 limb millimeter left pontine stroke. Continue Lovenox for acute DVT for now. Continue antibiotics. Consult hematology for possible hypercoagulable state and also for anticoagulation recommendation. Subjective Date of service: 06/03/20 Objective - Constitutional Vitals: Vital Signs - 12hr 06/03/20 06/03/20 06/03/20 04:16 08:00 11:14 Temperature 98.6 F 98.4 F 98.5 F Pulse Rate 81 81 87 Respiratory 20 20 20 Rate Blood Pressure 137/78 124/79 130/69 O2 Sat by Pulse 94 92 94 Oximetry 06/03/20 11:24 Temperature Pulse Rate 81 Respiratory Rate Blood Pressure O2 Sat by Pulse Oximetry - Labs CBC & Chem 7: 06/02/20 01:17 06/02/20 01:17
[2020-06-03] MEDS: MORPHINE 2 MG/1 ML INJ IV PRN ×2 (15:08→22:11)
[2020-06-03] MEDS: CLOPIDOGREL 75 MG TAB PO SCH (15:10)
[2020-06-03] MEDS ORDERED: POTASSIUM CHLORIDE ER 20 MEQ TAB PO ONE (15:33)
--- NOTE | 2020-06-03 17:10 | Hem/Onc Consultation ---
History of Present Illness - History of Present Illness televisit by [facility] heme consult requested by Dr. 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 now hosp for R ankle swelling and pain found to have R CFV DVT also concern she mayhave another stroke, but now doubted since admission started lovenox 120mg subq bid PMH: neg for malignancy, neg for sickle cell FH: neg for clotting SOC: retired nurse, no alcohol use EXAM: broca's aphasia, A/O obese woman R ankle very red, tender, swollen R>L knee/calf swelling DATA REVIEWED BELOW R leg u/s shows R CFV DVT Brain imaging shows old-appearing stroke IMPRESSION: presumed clotting tendency, h/o stroke(s), now with DVT R ankle looks more like gout than cellulitis DVT is likely not the only reason for R leg swelling REC: anticoag with lovenox 120mg (change to daily because of her age) steroid pulse for presumed gout IV Abx prescribed plan for home eliquis 5mg po bid "long-term" OK to combine with aspirin 81 labs to include Hgb electropohoresis, cardiolipin ab Vital Signs Temp Pulse Resp BP Pulse Ox 98.5 F 81 20 130/69 94 06/03/20 11:14 06/03/20 11:24 06/03/20 11:14 06/03/20 11:14 06/03/20 11:14 Temperature -Last 24 Hours Temperature 98.5 F Temperature 98.4 F Temperature 98.6 F Temperature 98.7 F Temperature 98.7 F Home Medications Medication Instructions Recorded Confirmed Last Taken Atorvastatin 40 mg PO ONCE 06/02/20 06/02/20 06/01/20 Plavix 75 mg PO ONCE 06/02/20 06/02/20 06/01/20 Pradaxa 75 mg PO ONCE 06/02/20 06/02/20 06/01/20 amLODIPine 10 mg PO ONCE 06/02/20 06/02/20 06/01/20 Laboratory Last Values WBC 6.7 K/mm3 (4.5-11.0) 06/02/20 01:17 Hgb 15.4 gm/dl (10.1-14.3) H 06/02/20 01:17 Hct 46.8 % (30.3-42.9) H 06/02/20 01:17 MCV 92 fl (79-97) 06/02/20 01:17 Plt Count 255 K/mm3 (140-440) 06/02/20 01:17 INR 1.22 (0.87-1.13) H 06/02/20 01:17 APTT 49.7 Sec. (24.2-36.6) H 06/02/20 01:17 Creatinine 0.8 mg/dL (0.6-1.2) 06/02/20 01:17 Cholesterol/HDL Ratio 2.03 % 06/03/20 04:00 Past History Past Medical History: arthritis, hypertension, stroke (2019), other (Dementia,) Past Surgical History: appendectomy Social history: no significant social history Family history: no significant family history Medications and Allergies Allergies Allergy/AdvReac Type Severity Reaction Status Date / Time aspirin Allergy Hives Verified 07/29/19 17:11 Home Medications Medication Instructions Recorded Confirmed Last Taken Type Atorvastatin 40 mg PO ONCE 06/02/20 06/02/20 06/01/20 History Plavix 75 mg PO ONCE 06/02/20 06/02/20 06/01/20 History Pradaxa 75 mg PO ONCE 06/02/20 06/02/20 06/01/20 History amLODIPine 10 mg PO ONCE 06/02/20 06/02/20 06/01/20 History Active Meds: Active Medications Acetaminophen (Tylenol) 650 mg PO Q4H PRN PRN Reason: Pain MILD(1-3)/Fever >100.5/SHAW Last Admin: 06/02/20 11:45 Dose: 650 mg Documented by: Atorvastatin Calcium (Lipitor) 40 mg PO QHS [facility] Last Admin: 06/02/20 22:02 Dose: 40 mg Documented by: Bisacodyl (Dulcolax) 10 mg ND QDAY PRN PRN Reason: Constipation Clopidogrel Bisulfate (Clopidogrel 75 Mg Tab) 75 mg PO QDAY [facility] Last Admin: 06/03/20 15:10 Dose: 75 mg Documented by: Dextrose (D50w (25gm) Syringe) 50 ml IV Q30MIN PRN; Protocol PRN Reason: Hypoglycemia Enoxaparin Sodium (Enoxaparin) 120 mg 1 mg/kg (120 mg) SUB-Q Q12H [facility]; Protocol Last Admin: 06/03/20 06:00 Dose: 120 mg Documented by: Piperacillin Sod/Tazobactam Sod (Zosyn/Ns 4.5gm/100ml) 4.5 gm in 100 mls @ 200 mls/hr IV Q8HR [facility]; Protocol Last Admin: 06/03/20 14:02 Dose: 200 mls/hr Documented by: Magnesium Hydroxide (Milk Of Magnesia) 30 ml PO Q4H PRN PRN Reason: Constipation Metoclopramide HCl (Reglan) 10 mg PO Q6H PRN PRN Reason: Nausea And Vomiting Morphine Sulfate (Morphine) 2 mg IV Q4H PRN PRN Reason: Pain, Moderate (4-6) Last Admin: 06/03/20 15:08 Dose: 2 mg Documented by: Ondansetron HCl (Zofran) 4 mg IV Q8H PRN PRN Reason: Nausea And Vomiting Oxycodone/Acetaminophen (Percocet 5/325) 1 tab PO Q6H PRN PRN Reason: Pain, Moderate (4-6) Last Admin: 06/03/20 09:32 Dose: 1 tab Documented by: Pantoprazole Sodium (Pantoprazole 40 Mg Tab) 40 mg PO QDAC KJ Promethazine HCl (Phenergan) 25 mg ND Q6H PRN PRN Reason: Nausea And Vomiting Sodium Chloride (Sodium Chloride Flush Syringe 10 Ml) 10 ml IV BID [facility] Last Admin: 06/03/20 09:32 Dose: 10 ml Documented by: Sodium Chloride (Sodium Chloride Flush Syringe 10 Ml) 10 ml IV PRN PRN PRN Reason: LINE FLUSH Last Admin: 06/03/20 06:00 Dose: 10 ml Documented by: Exam - Constitutional Vitals: Last Vital Signs Temp 98.5 F 06/03/20 11:14 Pulse 81 06/03/20 11:24 Resp 20 06/03/20 11:14 BP 130/69 06/03/20 11:14 Pulse Ox 94 06/03/20 11:14 Results - Labs lab Results: Laboratory Results - last 24 hr 06/03/20 04:00 Triglycerides 48 Cholesterol 114 LDL Cholesterol Direct 63 HDL Cholesterol 56 Cholesterol/HDL Ratio 2.03
--- NOTE | 2020-06-03 17:11 | Progress Note ---
Assessment and Plan 1) Left pontine stroke. Plan: 1) continue Plavix and statin at this time. 2) Please provide her speech therapy, physical therapy, occupational therapy. 2) Right leg DVT Plan: 1) Continue care as per primary team for anticoagulation. There is no contraindication for starting anticoagulation for neurology standpoint. I discussed at length with the patient regarding his condition and possible treatment options. I have answered multiple questions posed by the patient to her best satisfactions. Patient agreed with the plan. Thank you very much for allowing us in the care of your patient. Please call us if you have any questions. Josué Egan MD Tele-neurologist [phone] Subjective Date of service: 06/03/20 Principal diagnosis: right leg DVT and slurred speech with right-sided weakness Interval history: Patient is seen and examined. Her MRI of the brain revealed subacute left pontine stroke. She is also positive for right leg DVT. It was reported that she was on anticoagulant but unclear about the compliance. She reports that her speech is still slurred and has very mild right-sided weakness. Objective - Exam Narrative Exam: Neurological examinations. Awake, oriented 3 Speech: dysarthric speech Memory: Normal Cranial nerves: II-XII: grossly intact Motor: Both upper extremities: no drift Both lower extremities: mild right leg drift but left leg is normal. Sensory: Light touch/pinprick-normal Coordination: Rhvnvl-ci-jwad-normal Gait: not tested since patient has a right leg DVT - Vital Sign Vital Signs - 12hr 06/03/20 06/03/20 06/03/20 08:00 11:14 11:24 Temperature 98.4 F 98.5 F Pulse Rate 81 87 81 Respiratory 20 20 Rate Blood Pressure 124/79 130/69 O2 Sat by Pulse 92 94 Oximetry - Laboratory Findings CBC and BMP: 06/02/20 01:17 06/02/20 01:17 Abnormal Lab Findings: Abnormal Labs 06/02/20 06/02/20 06/02/20 01:17 01:17 01:17 RBC 5.11 H Hgb 15.4 H Hct 46.8 H RDW 15.5 H [place] % (Auto) 9.5 H PT 15.4 H INR 1.22 H APTT 49.7 H Thrombin Time < 13.0 L Potassium 3.5 L Glucose 102 H
[2020-06-03] MEDS: oxyCODONE 5 MG TAB PO PRN (17:50)
[2020-06-03] MEDS: methylPREDNISolone Sod Succinate 125 MG/2 ML INJ IV SCH (18:10)
[2020-06-03] MEDS: FUROSEMIDE 20 MG TAB PO SCH (18:10)
[2020-06-04] MEDS: oxyCODONE 5 MG TAB PO PRN ×3 (01:49→18:56)
[2020-06-04] MEDS: MORPHINE 2 MG/1 ML INJ IV PRN (01:57)
[2020-06-04] MEDS: methylPREDNISolone Sod Succinate 125 MG/2 ML INJ IV SCH (05:21)
[2020-06-04] MEDS: PIPERACIL/TAZOBACTA 4.5/NS 100 4.5 GM/100 ML VIAL IV SCH ×2 (05:21→13:02)
[2020-06-04] MEDS ORDERED: PANTOPRAZOLE 40 MG TAB PO SCH (07:30)
[2020-06-04] MEDS: CLOPIDOGREL 75 MG TAB PO SCH (08:59)
[2020-06-04] MEDS: FUROSEMIDE 20 MG TAB PO SCH (08:59)
[2020-06-04 09:43] LABS: BUN/Creatinine Ratio 15; Blood Urea Nitrogen 15 mg/dL (7-17); Calcium 9.9 mg/dL (8.4-10.2); Hemolysis Index 4
[2020-06-04] MEDS ORDERED: ENOXAPARIN 120 MG/0.8 ML INJ SUB-Q SCH (10:00)
[2020-06-04 11:28] LABS: Hematocrit 45.8 % (30.3-42.9); Hemoglobin 15.1 gm/dl (10.1-14.3)
--- NOTE | 2020-06-04 13:15 | Discharge Summary ---
Providers - Providers Date of Admission: 06/02/20 02:41 Date of discharge: 06/04/20 Attending physician: DANIEL REINA 06/02/20 02:45 Consult to Physician [CONS] Routine Comment: Consulting Provider: JARED BROOKS Physician Instructions: Reason For Exam: CVA 06/02/20 02:46 Occupational Therapy Evaluate and Treat [CONS] Routine Comment: Reason For Exam: Neuro deficits Physical Therapy Evaluation and Treat [CONS] Routine Comment: Reason For Exam: Neuro deficits 06/03/20 09:49 Consult to Physician [CONS] Routine Comment: Consulting Provider: BRYCE ROMAN Physician Instructions: Reason For Exam: DVT with new stroke Primary care physician: SPEECH PATHOLOGIST Hospitalization Condition: Fair Hospital course: Discharge diagnosis: (1) CVA (cerebral vascular accident) Current Visit: Yes Status: Acute Plan to address problem: s/p MRI of the brain and carotid Doppler. Patient started on plavix as she is allergic to aspirin and continue statin. requested evaluation by neurology. PT recommended home health (2) Cellulitis of foot, right Current Visit: Yes Status: Acute Plan to address problem: We will start patient on empiric IV antibiotics. (3) Right leg DVT Current Visit: Yes Status: Acute Plan to address problem: Patient started on anticoagulation with Lovenox. (4) Full code status Current Visit: Yes Status: Acute 06/03: MRI brain positive for 3 limb millimeter left pontine stroke. Continue Lovenox for acute DVT for now. Continue antibiotics. Consult hematology for possible hypercoagulable state and also for anticoagulation recommendation. 06/04: Hematology recommended Eliquis 5 mg twice daily for anticoagulation for DVT Rx. Neurology also cleared for AC. Patient will need PT on discharge. Will d/c home today with eliquis, Plavix as she is allergic to aspirin, total 7 days of abx for cellulites and tapering dose of steroid for acute gout arthritis. Disposition: [id number] HOME UNDER HOME [facility] Time spent for discharge: 34 minutes Core Measure Documentation - Palliative Care Palliative Care/ Comfort Measures: Not Applicable - Core Measures Any of the following diagnoses?: stroke - Stroke Discharge Requirements Statin for LDL = or >70 mg/dl on DC: Yes Anticoag for atrial fib/atrial flutter: Yes Antithrombotic for ischemic stroke: Yes Exam - Constitutional Vitals: Temp Pulse Resp BP Pulse Ox 97.8 F 101 H 20 146/78 91 06/04/20 11:42 06/04/20 11:42 06/04/20 11:42 06/04/20 11:42 06/04/20 11:42 Plan Activity: advance as tolerated, fall precautions Weight Bearing Status: Weight Bear as Tolerated Diet: low fat, low salt Additional Instructions: f/u with Jas physician in one week Follow up with: PRIMARY CARE,MD [Primary Care Provider] - 3-5 Days Prescriptions: AtorvaSTATin [Lipitor] 40 mg PO QHS #30 tablet Apixaban [Eliquis] 5 mg PO Q12HR #60 tablet cephALEXin [Keflex] 500 mg PO Q6HR #20 capsule Clopidogrel [Plavix] 75 mg PO QDAY #30 tablet Prednisone [predniSONE 5 mg (6-Day Pack, 21 Tabs)] 5 mg PO .TAPER #1 tab.ds.pk Pantoprazole [Protonix TAB] 40 mg PO QDAC #30 tablet oxyCODONE [roxiCODONE] 10 mg PO Q4H PRN #10 tablet PRN Reason: Pain, Moderate (4-6)
[2020-06-04 14:52] LABS: Hematocrit 41.9 % (30.3-42.9); Hemoglobin 14.4 gm/dl (10.1-14.3)
[2020-06-04 16:25] VITALS: BP 170/79
[2020-06-04] MEDS ORDERED: APIXABAN 5 MG TAB PO SCH (22:00)
[2020-06-08 07:03] LABS: Cardiolipin Ab IgA <11 APL (<=11); Cardiolipin Ab IgG <14 GPL (<=14); Cardiolipin Ab IgM <12 MPL (<=12)
== END 2020-06-04 19:10 | disposition home health service (06) | DRG 65 ==
LOC: ED 00:40 → 4A 02:41
PROVIDERS: ADMIT Internal Medicine Geriatric Medicine; ATTEND Internal Medicine
DX: I63.9 Cerebral infarction, unspecified (principal); I82.401 Acute embolism and thrombosis of unspecified deep veins of right lower extremity; L03.115 Cellulitis of right lower limb; G81.91 Hemiplegia, unspecified affecting right dominant side; D68.59 Other primary thrombophilia; Z68.42 Body mass index [BMI] 45.0-49.9, adult; E11.9 Type 2 diabetes mellitus without complications; M19.90 Unspecified osteoarthritis, unspecified site; F03.90 Unspecified dementia, unspecified severity, without behavioral disturbance, psychotic disturbance, mood disturbance, and anxiety; E66.9 Obesity, unspecified; E78.5 Hyperlipidemia, unspecified; R29.704 NIHSS score 4; I10 Essential (primary) hypertension; Z79.899 Other long term (current) drug therapy; Z79.891 Long term (current) use of opiate analgesic; Z79.01 Long term (current) use of anticoagulants; Z88.8 Allergy status to other drugs, medicaments and biological substances; Z90.49 Acquired absence of other specified parts of digestive tract
CPT/HCPCS: 36415; 70450; 70551; 74018; 80048; 80061; 82270; 84550; 85014; 85018; 85025; 85610; 85670; 85730; 86147; 93005; 93306; 93880; 96361; 96365; 96367; 96368; 96375; 96376; G0378; A9270-GY; J1650; J2270; J2543; J2930